=== PATIENT | male | born 2000 | race American Indian/Alaskan Native ===

== ENCOUNTER 2023-04-18 10:10 | Emergency (ER) | payer MEDICAID ==
[~2023-04-18] VITALS: Ht 180.3 cm; Wt 77.0 kg
[2023-04-18 10:27] VITALS: TEMP 98.8; O2SAT 100
[2023-04-18 10:45] VITALS: BP 144/95; PULSE 65; RESP 16
[2023-04-18] MEDS: KETOROLAC 60MG/2ML VIAL IM ONE (10:45)
[2023-04-18] MEDS ORDERED: DEXAMETHASONE 2MG TABLET PO ONE (10:45)
[2023-04-18] MEDS: DEXAMETHASONE 4MG TABLET PO NR (11:00)
[2023-04-18] MEDS ORDERED: PSEU60TA99 MT (12:12)
[2023-04-18] MEDS ORDERED: FLUT15.844 BOTHNSTRLS (12:12)
[2023-04-18] MEDS ORDERED: CETI10CA11 MT (12:12)
[2023-04-18 12:16] LABS: MONOTEST NEGATIVE (NEGATIVE)
== END 2023-04-18 13:02 | disposition home or self-care (01) ==
LOC: ER 10:10
DX: J35.1 Hypertrophy of tonsils (principal)
CPT/HCPCS: 99283; 87430; 86308; 87070; 96372; J8540; J1885